=== PATIENT | male | born 1980 | race Caucasian/White ===

== ENCOUNTER 2020-10-05 16:53 | Inpatient (IN) | payer OTHER ==
[~2020-10-05] VITALS: Ht 187.9 cm; Wt 79.6 kg
[~2020-10-05 16:53] MED LIST: AUGMENTIN 875 M1 TAB PO; DOLOBID500 MG PO; TRAMADOL HCL50 MG PO; TRIMOX500 MG PO
[2020-10-05 17:13] VITALS: BP 171/105
[2020-10-05 17:43] LABS: BASO # 0.1 10*3/uL (0.0-0.1); BASO % 0.6 % (0.0-1.0); EOS # 0.3 10*3/uL (0.0-0.4); EOS % 2.9 % (1.0-4.0); HEMATOCRIT 44.6 % (42.0-52.0); LYMPH # 2.5 10*3/uL (1.3-4.4); LYMPH % 26.5 % (27.0-41.0); MEAN CELL VOLUME 86.3 fl (80.0-94.0); MEAN CORPUSCULAR HGB 28.4 pg (27.0-31.0); MEAN PLATELET VOLUME 9.3 fl (9.6-12.3); MONO # 0.7 10*3/uL (0.1-1.0); MONO % 7.7 % (3.0-9.0); NEUT # 5.8 10*3/uL (2.3-7.9); NEUT % 61.3 % (47.0-73.0); PLATELET COUNT AUTOMATED 255 10*3/uL (130-400); RED BLOOD COUNT 5.17 10*6/uL (4.50-5.90); RED CELL DISTRI WIDTH 13.3 % (0-14.5); WHITE BLOOD COUNT 9.4 10*3/uL (4.8-10.8)
--- NOTE | 2020-10-05 17:52 | NUR ---
PT IS RESTING IN BED WITH SAFTEY PRECAUTIONS IN PLACE. PT IS ALERT AND CALM AT THIS TIME.
[2020-10-05 18:02] LABS: ALBUMIN 3.6 gm/dl (3.1-4.5); ALKALINE PHOSPHATASE 77 U/L (45-117); BUN 13 mg/dl (7-24); CHLORIDE 107 mmol/L (98-107); CREATININE 0.94 mg/dL (0.70-1.30); LIPASE 99 U/L (73-393); POTASSIUM 4.1 mmol/L (3.5-5.1); SGOT/AST 19 IU/L (3-35); SGPT/ALT 42 U/L (12-78); SODIUM 138 mmol/L (136-145); TOTAL PROTEIN 7.5 gm/dL (6.4-8.2)
[2020-10-05 18:09] LABS: ACETAMINOPHEN (TYLENOL) < 5.0 ug/ml (10-30)
[2020-10-05 18:20] LABS: BILIRUBIN Negative (Negative); BLOOD Negative (Negative); CLARITY Cloudy (Clear); COLOR Yellow (Yellow); GLUCOSE Negative (Negative); KETONE Negative (Negative); LEUKO ESTERASE Negative (Negative); NITRITE Negative (Negative); SPECIFIC GRAVITY 1.015 (1.001-1.030)
[2020-10-05 18:27] LABS: URINE AMPHETAMINES < 1000 (1000ng/ml); URINE BARBITURATES > 200 (200ng/ml); URINE BENZODIAZEPINES > 200 (200ng/ml); URINE CANNABINOIDS (THC) > 50 (50ng/ml); URINE COCAINE < 300 (300ng/ml); URINE METHADONE < 300 (300ng/ml); URINE OPIATES < 300 (300ng/ml)
[2020-10-05 18:30] LABS: WBC 0-2 wbc/hpf (0-5)
[2020-10-05 18:33] LABS: URINE PHENCYCLIDINE < 25 (25ng/ml)
--- NOTE | 2020-10-05 18:37 | NUR ---
PT STATES "THE MED GIVEN HELPED WITH THE MUSCLE CRAMPS". PT HAS MILD TREMORS, W/O DISTRESS. PT RESTING IN BED WITH SAFTEY PRECAUTIONS IN PLACE.
[2020-10-05 20:09] VITALS: BP 108/65
--- NOTE | 2020-10-05 20:17 | NUR ---
RESIDENT PHYSICIAN VERIFIED THAT PT DOES NOT REQUIRE IV ACCESS FOR ADMISSION.
--- NOTE | 2020-10-05 20:25 | NUR ---
PT IS RESTLESS IN BED, SAFTEY PRECAUTIONS IN PLACE. CALL LIGHT IN REACH.
--- NOTE | 2020-10-05 21:00 | NUR ---
REPORT TAKEN FROM ALEKSANDRA SAUCEDO.
[2020-10-05 21:09] VITALS: BP 134/87
--- NOTE | 2020-10-05 21:10 | NUR ---
PATIENT RESTING AT THIS TIME. HE IS RESTING WITH HIS EYES CLOSED. RESP EASY AND NON LABORED. PWD. EASILY AROUSABLE. CALL LIGHT IN REACH. WILL CONTINUE TO MONITOR PT.
[2020-10-05 22:37] VITALS: BP 147/88
--- NOTE | 2020-10-05 22:38 | NUR ---
PATIENT RESTING AT THIS TIME. IN POSITION OF COMFORT. NO FURTHER COMPLAINTS. MEDICATED PER EMAR. WILL CONTINUE TO MONITOR PT. CALL LIGHT IN REACH. SAFETY PRECAUTIONS TAKEN WITH BEDRAILS RAISED.
[2020-10-06 01:35] VITALS: BP 158/94
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
--- NOTE | 2020-10-06 01:41 | NUR ---
SCHEDULED ATIVAN GIVEN PER ORDER
--- NOTE | 2020-10-06 01:46 | NUR ---
PATIENT DENIES TAKING ANY HOME MEDICATIONS
--- NOTE | 2020-10-06 01:49 | NUR ---
BENTYL GIVEN FOR STOMACH CRAMPING. MOTRIN GIVEN FOR GENERALIZED BODY ACHES. NICODERM PATCH APPLIED TO L UPPER ARM FOR NICOTINE CRAVING. REQUIP & ROBAXIN GIVEN FOR RESTLESSS LEGS & LEG CRAMPING. ZOFRAN GIVEN FOR NAUSEA. WILL MONITOR EFFECTIVENESS OF MEDICATION.
--- NOTE | 2020-10-06 02:45 | NUR ---
EARLIER MEDS EFFECTIVE PER PT. WILL MONITOR. CALL LIGHT IN REACH.
--- NOTE | 2020-10-06 04:03 | NUR ---
PT DENIES ANY NEEDS. WILL CONTINUE TO MONITOR. CALL LIGHT IN REACH.
--- NOTE | 2020-10-06 05:45 | NUR ---
SCHEDULED ATIVAN GIVEN PER ORDER. PT DENIES ANY OTHER NEEDS.
--- NOTE | 2020-10-06 07:30 | NUR ---
PT RESTING IN BED.RESPS EASY AND NON LABORED. VSS. WHITE BOARD UPDATED. POC DISCUSSED W PT. A/O X3. SLIGHTY DIAPHORETIC. FINE TREMORS NOTED. PT STATES HE JSUT FEELS JITTERY. NO C/O DIARRHEA. WILL CONTINUE TO MONITOR. CALL LIGHT WITHIN REACH.
[2020-10-06 08:00] VITALS: BP 153/94
--- NOTE | 2020-10-06 09:06 | NUR ---
PT MEDICATED FOR C/O MUSCLES SPASMS/ACHES PER ORDER. WILL MONTIOR FOR RELIEF. RESPS EASY AND NON LABROED. CALL LIGHT WITHIN REACH. RESTING IN BED WATCHING TV
--- NOTE | 2020-10-06 10:00 | NUR ---
MEDS EFFECTIVE PER PT
--- NOTE | 2020-10-06 11:30 | NUR ---
PT MEDICATED W VISTARIL FOR C/O ANXIETY.
--- NOTE | 2020-10-06 11:30 | NUR ---
PT NOTED TO HAVE SHEET ROCK NAILER AND POCKET KNIFE SITTING ON BED SIDE TABLE. EXPLAINED TO PT HE COULD NOT HAVE THESE ITEMS HERE BECAUSE IT IS AGAINST POLICY. ITEMS LOCKED UP AT THIS TIME. DUE DILIGENCE COORDINATOR, SUNDEEP AND SECURITY NOTIFIED.
--- NOTE | 2020-10-06 11:48 | NUR ---
KNIFE AND DRIVER MATERIAL HANDLER PLACED INTO BAG AND PT LABELED ATTACHED. SECURITY STATES THEY WILL BE UP TO GRAB IT.
[2020-10-06 12:00] VITALS: BP 154/93
--- NOTE | 2020-10-06 13:59 | NUR ---
PT MEDICATED FOR C/O RESTLESS LEGS.
--- NOTE | 2020-10-06 14:57 | NUR ---
PT STATES MEDICATION EFFECTIVE
--- NOTE | 2020-10-06 14:57 | NUR ---
SECURITY TOOK BELONGINGS
--- NOTE | 2020-10-06 15:12 | NUR ---
PT STATES HE "NEEDS SOMETHING" AND THAT HES"REALLY GOING THROUGH IT" AND WOULD LIKE TO TALK TO A DOCTOR. DR NAIDU NOTIFIED AT THIS TIME. PT MEDICATED PER ORDER.
--- NOTE | 2020-10-06 15:24 | NUR ---
PATIENT MEETS [facility]. PATIENT WANTS TO FOLLOW UP WITH [facility] MEET[facility] FOR HIS AFTERCARE PLAN. ILDA SHETTY B.A. SPORTS BETTING MANAGER
--- NOTE | 2020-10-06 15:33 | NUR ---
PT STATES THE NICOTINE PATCH IS NOT WORKING AND WANTS TO TRY THE INHALER. CALLED PHARMACY AND THEY STATE THEY WILL SEND ONE UP
[2020-10-06 16:01] VITALS: BP 158/82; BP 163/105
[2020-10-06 19:58] VITALS: BP 143/87
--- NOTE | 2020-10-06 23:09 | NUR ---
TRAZODONE AND ROBAXIN GIVEN PER ORDER FOR COMPLAINTS OF INSOMNIA AND LEG/MUSCLE CRAMPS. WILL MONITOR
[2020-10-07] VITALS: BP 151/97
--- NOTE | 2020-10-07 00:05 | NUR ---
PRN MEDICATIONS EFFECTIVE, PT ASLEEP
--- NOTE | 2020-10-07 01:57 | NUR ---
REQUIP AND VISTARIL GIVEN PER ORDER FOR COMPLAINTS OF RESTLESS LEGS AND ANXIETY. WILL MONITOR.
--- NOTE | 2020-10-07 02:55 | NUR ---
PER PT MEDICATIONS HELPED "A LITTLE"
--- NOTE | 2020-10-07 05:38 | NUR ---
MOTRIN GIVEN PER ORDER FOR HEADACHE. WILL MONITOR
--- NOTE | 2020-10-07 06:30 | NUR ---
MOTRIN APPEARS EFFECTIVE, PT ASLEEP
[2020-10-07 08:00] VITALS: BP 148/98
--- NOTE | 2020-10-07 09:01 | NUR ---
ROBAXIN GIVEN FOR C/O GEN. MUSCLE ACHES, VISTARIL GIVEN FOR C/O ANXITEY. WILL MONITOR.
--- NOTE | 2020-10-07 10:05 | NUR ---
ROBAXIN AND VISTARIL EFFECTIVE PER PT.
[2020-10-07 12:00] VITALS: BP 148/98
--- NOTE | 2020-10-07 13:44 | NUR ---
[facility] STAFF IN TO SEE PATIENT. PATIENT WANTS TO FOLLOW UP WITH ON DEMAND FOR HIS AFTERCARE PLAN. ILDA SHETTY B.A. FURNACE CHARGER
--- NOTE | 2020-10-07 15:24 | NUR ---
REQUIP GIVEN FOR C/O RESTLESS LEGS, ROBAXIN GIVEN FOR C/O MUSCLE ACHES, VISTARIL GIVEN FOR C/O ANXIETY. WILL MONITOR.
--- NOTE | 2020-10-07 15:43 | NUR ---
NOTIFIED DR. DIEGO OF PT'S BP. WILL MONITOR.
[2020-10-07 16:00] VITALS: BP 142/106
--- NOTE | 2020-10-07 16:23 | NUR ---
NOTIFIED DR. DIEGO OF PT'S BP.
--- NOTE | 2020-10-07 16:30 | NUR ---
ROBAXIN, VISTARIL AND REQUIP BARELY EFFECTIVE PER PT. WILL MONITOR.
[2020-10-07 20:00] VITALS: BP 140/101
--- NOTE | 2020-10-07 20:44 | NUR ---
DR OZUNA AWARE OF BLOOD PRESSURE
--- NOTE | 2020-10-07 20:48 | NUR ---
MEDICATED WITH PRN TRAZADONE,MOTRIN,ROBAXIN,VISTARIL, AND ATIVAN FOR C/O WITHDRAWAL SYMPTOMS.
--- NOTE | 2020-10-07 21:48 | NUR ---
MEDICATION SOMEWHAT EFFECTIVE PER PATIENT
--- NOTE | 2020-10-07 23:07 | NUR ---
24 HR chart check completed.
[2020-10-08] VITALS: BP 149/97
[2020-10-08 06:33] LABS: BASO # 0.1 10*3/uL (0.0-0.1); BASO % 0.6 % (0.0-1.0); EOS # 0.2 10*3/uL (0.0-0.4); EOS % 2.3 % (1.0-4.0); HEMATOCRIT 46.5 % (42.0-52.0); LYMPH # 3.5 10*3/uL (1.3-4.4); LYMPH % 34.2 % (27.0-41.0); MEAN CELL VOLUME 85.3 fl (80.0-94.0); MEAN CORPUSCULAR HGB 28.6 pg (27.0-31.0); MEAN CORPUSCULAR HGB CONC 33.5 g/dl (33.0-37.0); MEAN PLATELET VOLUME 9.3 fl (9.6-12.3); MONO # 0.9 10*3/uL (0.1-1.0); MONO % 8.3 % (3.0-9.0); NEUT # 5.5 10*3/uL (2.3-7.9); NEUT % 54.1 % (47.0-73.0); PLATELET COUNT AUTOMATED 267 10*3/uL (130-400); RED BLOOD COUNT 5.45 10*6/uL (4.50-5.90); RED CELL DISTRI WIDTH 13.5 % (0-14.5); WHITE BLOOD COUNT 10.2 10*3/uL (4.8-10.8)
[2020-10-08 08:00] VITALS: BP 142/93
--- NOTE | 2020-10-08 09:01 | NUR ---
REQUIP GIVEN FOR C/O RESTLESS LEGS, ROBAXIN GIVEN FOR C/O NUSCLE ACHES, VISTARIL GIVEN FOR C/O ANXIETY. WILL MONITOR.
--- NOTE | 2020-10-08 09:15 | NUR ---
ATIVAN GIVEN FOR C/O TREMORS/ANXIETY. WILL MONITOR.
--- NOTE | 2020-10-08 10:10 | NUR ---
PT LEFT AMA
== END 2020-10-08 10:10 | disposition left against medical advice (07) | DRG 770 ==
LOC: ED 16:53 → EDHOLD 19:36 → 5E 19:36 → EDHOLD 20:49 → 5E 10-06 01:11
PROVIDERS: Physician Assistant; ADMIT Internal Medicine; ATTEND Internal Medicine
DX: F11.13 Opioid abuse with withdrawal (principal); R73.9 Hyperglycemia, unspecified; F12.10 Cannabis abuse, uncomplicated; F17.210 Nicotine dependence, cigarettes, uncomplicated; F13.139 Sedative, hypnotic or anxiolytic abuse with withdrawal, unspecified; R00.1 Bradycardia, unspecified; Z53.29 Procedure and treatment not carried out because of patient's decision for other reasons

== ENCOUNTER 2021-11-19 21:50 | Emergency (ER) | payer OTHER ==
[~2021-11-19] VITALS: Ht 190.5 cm; Wt 90.7 kg
== END 2021-11-19 22:47 | disposition left against medical advice (07) ==
LOC: ED 21:50
DX: R51.9 Headache, unspecified (principal); F17.200 Nicotine dependence, unspecified, uncomplicated; Z98.890 Other specified postprocedural states

== ENCOUNTER 2022-09-23 14:37 | Emergency (ER) | payer OTHER ==
[~2022-09-23] VITALS: Ht 190.5 cm; Wt 90.7 kg
[2022-09-23 15:39] LABS: ABG BASE EXCESS 4.3 mmol/L (-2.0-2.0); ARTERIAL BLOOD GAS PH 7.328 (7.35-7.45); ARTERIAL BLOOD GAS PO2 66.3 (80-90)
[2022-09-23 15:48] LABS: BASO % 0.3 % (0.0-1.0); EOS # 0.1 10*3/uL (0.0-0.4); EOS % 0.6 % (1.0-4.0); HEMATOCRIT 42.6 % (42.0-52.0); LYMPH # 0.4 10*3/uL (1.3-4.4); LYMPH % 4.6 % (27.0-41.0); MEAN CELL VOLUME 89.3 fl (80.0-94.0); MEAN CORPUSCULAR HGB 29.8 pg (27.0-31.0); MEAN CORPUSCULAR HGB CONC 33.3 g/dl (33.0-37.0); MEAN PLATELET VOLUME 8.9 fl (9.6-12.3); MONO # 0.4 10*3/uL (0.1-1.0); MONO % 4.8 % (3.0-9.0); NEUT # 8.1 10*3/uL (2.3-7.9); NEUT % 89.4 % (47.0-73.0); PLATELET COUNT AUTOMATED 178 10*3/uL (130-400); RED BLOOD COUNT 4.77 10*6/uL (4.50-5.90); RED CELL DISTRI WIDTH 13.9 % (0-14.5); WHITE BLOOD COUNT 9.1 10*3/uL (4.8-10.8)
[2022-09-23 15:59] LABS: ACT PARTIAL THROMBO TIME 27.6 SECONDS (20.0-32.1)
[2022-09-23 16:04] LABS: ALKALINE PHOSPHATASE 76 U/L (46-116); BUN 12 mg/dl (9-23); CHLORIDE 98 mmol/L (98-107); POTASSIUM 3.7 mmol/L (3.4-5.1); SGPT/ALT 61 U/L (10-49); SODIUM 135 mmol/L (136-145)
[2022-09-23 16:05] LABS: TOTAL PROTEIN 6.9 gm/dL (6.0-8.0)
[2022-09-23] MEDS ORDERED: SUBOXONE 8 MG-1 EACH SL (16:08)
== END 2022-09-23 16:53 | disposition left against medical advice (07) ==
LOC: ED 14:37
PROVIDERS: Emergency Medicine
DX: T40.601A Poisoning by unspecified narcotics, accidental (unintentional), initial encounter (principal); Z20.822 Contact with and (suspected) exposure to COVID-19; J96.02 Acute respiratory failure with hypercapnia; Z79.899 Other long term (current) drug therapy; F17.210 Nicotine dependence, cigarettes, uncomplicated; Y92.89 Other specified places as the place of occurrence of the external cause

== ENCOUNTER 2025-06-01 19:18 | Emergency (ER) | payer OTHER ==
[~2025-06-01] VITALS: Ht 190.5 cm; Wt 90.7 kg
[~2025-06-01 19:18] MED LIST changes: +SUBOXONE 8 MG-1 EACH SL
[2025-06-01] MEDS ORDERED: Ondansetron Hydrochloride 4 MG/2 ML VIAL IV ONE (21:45)
[2025-06-01] MEDS ORDERED: HYDROmorphONE Hydrochloride 0.5 MG/0.5 ML SYRINGE IV ONE ×3 (21:45→23:55)
[2025-06-01] MEDS ORDERED: Ampicillin Sodium/Sulbactam 3 GM in SODIUM CHLORIDE 0.9% 100 ML IV ONE (22:50)
[2025-06-01] MEDS ORDERED: Acetaminophen/Hydrocodone 5 MG/325 MG TABLET PO ONE (23:55)
[2025-06-02] MEDS ORDERED: HYDROCODONE-AC1 EAC1 PO (00:08)
== END 2025-06-02 00:52 ==
LOC: ED 19:18
DX: S02.40EA Zygomatic fracture, right side, initial encounter for closed fracture (principal); S02.2XXA Fracture of nasal bones, initial encounter for closed fracture; S20.219A Contusion of unspecified front wall of thorax, initial encounter; S00.93XA Contusion of unspecified part of head, initial encounter; F17.200 Nicotine dependence, unspecified, uncomplicated; Z79.899 Other long term (current) drug therapy; Z98.890 Other specified postprocedural states; Y04.2XXA Assault by strike against or bumped into by another person, initial encounter; Y93.89 Activity, other specified; Y92.89 Other specified places as the place of occurrence of the external cause; Y99.8 Other external cause status

== ENCOUNTER 2025-07-07 02:32 | Inpatient (IN) | payer OTHER ==
[~2025-07-07] VITALS: Ht 187.9 cm; Wt 89.0 kg
[~2025-07-07 02:32] MED LIST changes: +HYDROCODONE-AC1 EAC1 PO
[2025-07-07 02:55] VITALS: BP 140/85
[2025-07-07] MEDS ORDERED: GABAPENTIN600 MG PO (02:57)
[2025-07-07] MEDS ORDERED: LORazepam 1 MG TAB PO ONE (03:20)
[2025-07-07] MEDS ORDERED: Ondansetron Hydrochloride 4 MG TAB PO ONE (03:20)
[2025-07-07 03:30] LABS: BASO # 0.1 10*3/uL (0.0-0.1); BASO % 0.9 % (0.0-1.0); EOS # 0.8 10*3/uL (0.0-0.4); EOS % 8.2 % (1.0-4.0); MEAN CELL VOLUME 87.9 fl (80.0-94.0); MEAN CORPUSCULAR HGB 29.3 pg (27.0-31.0); MEAN PLATELET VOLUME 9.2 fl (9.6-12.3); MONO # 0.8 10*3/uL (0.1-1.0); MONO % 8.9 % (3.0-9.0); NEUT # 4.7 10*3/uL (2.3-7.9); NEUT % 50.2 % (47.0-73.0); NUCLEATED RED BLOOD CELL 0.0 % (0.0-0.0); NUCLEATED RED BLOOD CELL 0.0 10*3/uL (0.0-0.0); PLATELET COUNT AUTOMATED 282 10*3/uL (130-400); RED CELL DISTRI WIDTH 13.4 % (0-14.5)
[2025-07-07 03:40] LABS: ACT PARTIAL THROMBO TIME 26.2 SECONDS (20.0-32.1)
[2025-07-07 04:03] LABS: BUN 26 mg/dl (9-23)
[2025-07-07] MEDS ORDERED: ACETAMINOPHEN 325 MG TAB PO PRN (06:05)
[2025-07-07] MEDS ORDERED: ACETAMINOPHEN 650 MG SUPP R PRN (06:05)
[2025-07-07] MEDS ORDERED: METHOCARBAMOL 750 MG TAB PO PRN (06:10)
[2025-07-07] MEDS ORDERED: Dicyclomine Hydrochloride 20 MG TAB PO PRN (06:10)
[2025-07-07] MEDS ORDERED: diphenhydrAMINE hydrochloride 50 MG/ML VIAL IV PRN (06:10)
[2025-07-07] MEDS ORDERED: hydrOXYzine 50 MG CAP PO PRN (06:10)
[2025-07-07] MEDS ORDERED: Buprenorphine Hydrochloride 2 MG TAB SL SCH (06:16)
[2025-07-07 08:22] VITALS: BP 138/94
[2025-07-07 12:00] VITALS: BP 158/95
[2025-07-07] MEDS ORDERED: LORazepam 1 MG TAB PO SCH (14:00)
[2025-07-08] MEDS ORDERED: Buprenorphine Hydrochloride 2 MG TAB SL SCH (06:00)
[2025-07-08] MEDS ORDERED: LORazepam 1 MG TAB PO SCH (16:00)
[2025-07-09] MEDS ORDERED: LORazepam 1 MG TAB PO PRN
[2025-07-09] MEDS ORDERED: Buprenorphine Hydrochloride 2 MG TAB SL SCH (10:00)
== END 2025-07-07 15:54 | disposition left against medical advice (07) | DRG 770 ==
LOC: ED 02:32 → EDHOLD 03:17 → 4E 08:32
PROVIDERS: Emergency Medicine; ADMIT Internal Medicine; ATTEND Internal Medicine
DX: F11.23 Opioid dependence with withdrawal (principal); F41.9 Anxiety disorder, unspecified; F15.23 Other stimulant dependence with withdrawal; Z53.29 Procedure and treatment not carried out because of patient's decision for other reasons; F17.210 Nicotine dependence, cigarettes, uncomplicated; F12.10 Cannabis abuse, uncomplicated